=== PATIENT | female | born 1990 | race Two or more races ===

== ENCOUNTER 2017-11-13 10:03 | Outpatient (CLI) | payer OTHER ==
[~2017-11-13 10:03] MED LIST: ANTICONCEPTIC PO; FOCALIN XR15 MG PO; KETO10TA2 PO; LAMICTAL100 MG PO; LITE COAT ASPI325 MG PO; LITIUM PO; PROZAC20 MG PO
== END 2017-11-13 12:40 | disposition home or self-care (01) ==
LOC: RAD 501 10:03
DX: S62.366S Nondisplaced fracture of neck of fifth metacarpal bone, right hand, sequela (principal); M24.541 Contracture, right hand